=== PATIENT | female | born 1955 | race Caucasian/White ===

== ENCOUNTER → 2023-04-16 12:39 | Outpatient (REF) | payer MEDICARE, OTHER, SELFPAY ==
[2023-04-16 15:31] LABS: Urine Albumin Trace (Neg - Trace); Urine Bilirubin Negative (Negative); Urine Character Slightly Cloudy (Clear); Urine Color Yellow; Urine Glucose Negative (Negative); Urine Ketone Negative (Negative); Urine Leukocyte Trace (Negative); Urine Nitrite Negative (Negative); Urine Occult Blood Negative (Negative); Urine Specific Gravity 1.025 (<1.030); Urine Urobilinogen Negative (Neg - 1+)
[2023-04-16 15:49] LABS: Blood Urea Nitrogen 18 mg/dl (7-17); Calcium 10.3 mg/dl (8.4-10.2); Carbon Dioxide 29 mmol/L (22-30); Chloride 104 mmol/L (98-107); Glucose 109 mg/dl (70-99); Sodium 142 mmol/L (135-145); eGFR > 60.00
[2023-04-16 15:50] LABS: Urine Amorphous Seen; Urine Calcium Oxalate Crystals Present; Urine Red Blood Cell 0-2 /HPF (0-2)
== END ==
LOC: HWRAD 12:39
PROVIDERS: ATTENDING PHYSICIAN Student in an Organized Health Care Education/Training Program; FAMILY PHYSICIAN Registered Nurse
DX: N13.30 Unspecified hydronephrosis (principal); I10 Essential (primary) hypertension
CPT/HCPCS: 36415; 74176; 80048; 81003; 81015

== ENCOUNTER → 2023-05-07 13:18 | Outpatient (REF) | payer MEDICARE, OTHER, SELFPAY ==
[2023-05-07 14:22] LABS: Blood Urea Nitrogen 20 mg/dl (7-17); Calcium 10.4 mg/dl (8.4-10.2); Carbon Dioxide 27 mmol/L (22-30); Chloride 99 mmol/L (98-107); Glucose 109 mg/dl (70-99); Potassium 3.5 mmol/L (3.5-5.1); Sodium 135 mmol/L (135-145); Uric Acid 10.5 mg/dl (2.5-6.2); eGFR > 60.00
[2023-05-09 12:03] LABS: Intact PTH 175.1 pg/ml (13.6-85.8)
== END ==
LOC: REG 13:18
PROVIDERS: ATTENDING PHYSICIAN Surgery; FAMILY PHYSICIAN Registered Nurse
DX: N13.2 Hydronephrosis with renal and ureteral calculous obstruction (principal)
CPT/HCPCS: 36415; 80048; 83970; 84550

== ENCOUNTER 2023-06-05 05:54 | Day surgery (SDC) | payer MEDICARE, OTHER, SELFPAY ==
[2023-06-01 14:10] VITALS: BMI 44.6
[2023-06-05] VITALS (7 sets, daily range): BP systolic 100–161; BP diastolic 44–77; BMI 44.6
[2023-06-05] MEDS: NORMOSOL-R 1000 IV (13:51)
[2023-06-05] MEDS: DETROL LA 4 MG PO (18:35)
[2023-06-05] MEDS: Pyridium 200 MG PO (18:35)
[2023-06-10 12:44] LABS: Stone Analysis Mass 3 mg
== END 2023-06-05 19:33 | disposition home or self-care (01) ==
LOC: SDS 05:54
PROVIDERS: ATTENDING PHYSICIAN Surgery
DX: N13.2 Hydronephrosis with renal and ureteral calculous obstruction (principal); N20.0 Calculus of kidney
CPT/HCPCS: 52356; 74018; 76000; 82365; A4300; C1758; C1769; C1894; C2617

== ENCOUNTER → 2023-06-25 11:38 | Outpatient (REF) | payer MEDICARE, OTHER, SELFPAY | LOC: HWRAD 11:38 | PROVIDERS: ATTENDING PHYSICIAN Registered Nurse; FAMILY PHYSICIAN Student in an Organized Health Care Education/Training Program | DX: Z78.0 Asymptomatic menopausal state (principal) | CPT/HCPCS: 77080 ==

== ENCOUNTER 2023-12-03 16:14 | Emergency (ER) | payer MEDICARE, OTHER, SELFPAY ==
[2023-12-03 16:19] VITALS: BP 138/59
[2023-12-03 16:52] LABS: % Basophils 0.6 % (0-2); % Eosinophils 2.3 % (0-6); % Immature Granulocytes 0.3 % (0-0.5); % Lymphocytes 25.5 % (20.5-51.1); % Monocytes 8.9 % (1.7-9.3); % Neutrophils 62.4 % (42.2-75.2); Absolute Basophils 0.1 10^3/uL (0-0.2); Absolute Eosinophils 0.2 10^3/uL (0-0.7); Absolute Lymphocytes 2.4 10^3/uL (1.2-3.4); Absolute Monocytes 0.8 10^3/uL (0.1-0.6); Absolute Neutrophils 5.8 10^3/uL (1.4-6.5); Hematocrit 38.2 % (37.0-47.0); Hemoglobin 13.3 g/dL (12.0-16.0); Mean Corp Hgb Conc. 34.8 g/dL (33.0-37.0); Mean Corpuscular Hgb 29.7 pg (27.0-31.0); Mean Corpuscular Volume 85.3 fL (81.0-99.0); Mean Platelet Volume 10.1 fL (7.4-10.4); Nucleated Red Blood Cells % 0 %; Platelet Count 216 10^3/uL (130-400); Red Blood Cell Count 4.48 10^6/uL (4.20-5.40); Red Cell Dist. Width 13.6 % (11.5-14.5); White Blood Cell Count 9.3 10^3/uL (4.8-10.8)
[2023-12-03 17:09] LABS: ALT (SGPT) 42 U/L (0-35); AST (SGOT) 41 U/L (14-36); Albumin 4.3 g/dl (3.5-5.0); Alkaline Phosphatase 99 U/L (38-126); Blood Urea Nitrogen 18 mg/dl (7-17); Calcium 9.9 mg/dl (8.4-10.2); Carbon Dioxide 25 mmol/L (22-30); Chloride 101 mmol/L (98-107); Glucose 109 mg/dl (70-99); Potassium 3.6 mmol/L (3.5-5.1); Sodium 141 mmol/L (135-145); Total Bilirubin 0.4 mg/dl (0.2-1.3); Total Protein 7.2 g/dl (6.3-8.2); eGFR > 60.00
[2023-12-03 17:24] LABS: Troponin I < 0.012 ng/ml
[2023-12-03 17:37] VITALS: BP 140/75
[2023-12-03 18:00] VITALS: BP 106/53
--- NOTE | 2023-12-03 18:12 | ED.GENMED ---
History of Present Illness
General
Chief Complaint: Chest Pain
Time Seen by Provider: 12/03/23 17:35
History of Present Illness
History of Present Illness:
68-year-old female with history of chronic dyspnea on exertion presents to the emergency department for evaluation of exertional chest discomfort that began while taking a walk today. The symptoms did not resolve at rest thus prompting her to come
to the hospital. She states that she has had past history of exertional chest discomfort, has been evaluated extensively by cardiology, pulmonology, and her primary physician for various causes of her breathing difficulty without a known diagnosis.
She does wear oxygen at night. She currently has mild chest discomfort. Denies any recent fevers or chills
Past History
Past History
ED Past Medical History: HTN
ED Past Surgical History: Orthopedic (L5-S1 laminectomy)
Social History
Tobacco: Former smoker
Alcohol: None
Drug: None
Personal: Single
Living: alone
Review of Systems
Review of Systems
Allergies reviewed?: Yes
All Other Systems: ROS reviewed and negative except as documented in HPI and ROS
Phy Exam
Physical Exam
Physical Exam:
GEN: Well appearing, NAD, WDWN
Eyes: PERRLA, EOMs intact, no scleral icterus
HENT: NCAT, oral mucosa moist
Lungs: CTAB, no wheezes, rales, rhonchi, normal chest wall excursion
Cardiac: RRR, no M/R/G, no peripheral edema. Radial pulses 2+ bilat
Neuro: AO x 3
MSK: No gross deformity or ecchymosis. No edema. No digital clubbing
Skin: No rashes, petechiae. Normal color, no pallor or jaundice.
Psych: Calm, cooperative, proper hygiene
Scores
Heart Score for Chest Pain Patients
STEMI patient?: No
History: Moderately Suspicious
ECG: Normal
Age: >/= 65 years
Risk Factors: >/= 3 Risk Factors or History of CAD
Troponin: </= Normal Limit
Heart Score for Chest Pain Patients: 5
Heart Score Risk: 20.3% MACE over next 6 weeks
Course
Orders/Labs/Results
Orders:
Orders
12/03/23 16:15
Electrocardiogram (*1) Urgent
Reason for Study: Chest Pain
EKG- Treatment ONCE
12/03/23 16:35
Complete Blood Count/With Diff Urgent
Comprehensive Metabolic Panel Urgent
Troponin I Urgent
12/03/23 18:11
CR Chest - 2 Views Urgent
Comment:
Reason For Exam: chest pain/SOB
12/03/23 18:21
D-Dimer Urgent
12/03/23 18:52
Troponin I Routine
Abnormal Lab Results
12/03/23
16:35
Absolute Monos (auto) 0.8 H 10^3/uL
(0.1-0.6)
BUN 18 H mg/dl
(7-17)
Glucose 109 H mg/dl
(70-99)
AST 41 H U/L
(14-36)
ALT 42 H U/L
(0-35)
12/03/23 16:35
12/03/23 16:35
Vital Signs
Initial and Last Documented VS:
Initial Vital Signs
Temp Pulse Resp BP Pulse Ox
97.7 F 65 18 138/59 96
12/03/23 16:19 12/03/23 16:19 12/03/23 16:19 12/03/23 16:19 12/03/23 16:19
Last Documented Vital Signs
Temp Pulse Resp BP Pulse Ox
97.7 F 61 16 122/72 96
12/03/23 16:19 12/03/23 19:45 12/03/23 19:45 12/03/23 19:00 12/03/23 19:45
MDM/Problems Addressed
MDM/Problems Addressed:
Female presents with exertional chest pain. Initial delta troponin as well as D-dimer negative ruling out ACS or pulmonary embolism. She is chronic dyspnea on exertion of uncertain origin and I suspect this was the likely transporter driver of her chest pain.
I have recommended she use her oxygen concentrator with exertion. Recommend close cardiology follow-up
Comment
Comment:
EKG independently interpreted by me shows normal sinus rhythm at a rate of [address] changes concerning for ischemia, patient motion artifact limits interpretation in the inferior and high lateral leads
*Critical Care Note
Total Time (30-74mins, 75-104mins- exclusive of procedures): Not Applicable
ED Attending Note
-
Portions of this chart may have been created with voice recognition software.� Occasional wrong word or��sound alike� substitutions may have occurred due to the inherent limitations of voice recognition software.
Discharge Plan
Departure
Patient Disposition: Home (Routine Discharge)
Date of Disposition: 12/03/23
Time of Disposition: 19:44
Patient with high blood pressure during this ER visit?: No
Discharge Problem:
Chest pain, exertional
Instructions: Chest Pain DCA Follow Up
Prescriptions:
No Action
lisinopril 20 MG tablet
20 mg PO DAILY
acetaminophen [Tylenol Extra Strength] 500 MG tablet
1,000 mg PO PRN PRN (Reason: fever/mild pain)
miconazole nitrate [Miconazorb AF] 1 APPLIC powder
1 applic topical PRN PRN (Reason: rash)
albuterol sulfate 1 PUFF HFA aerosol inhaler
2 puff inhalation PRN PRN (Reason: shortness of breath or wheeze)
Patient Comments:
Pt states last took 'months ago'
zinc gluconate 30 MG tablet
30 mg PO PRN PRN (Reason: supplement)
budesonide-formoterol [Symbicort] 1 PUFF HFA aerosol inhaler
2 puff inhalation R BID
biotin 1 MG capsule
2 mg PO PRN PRN (Reason: supplement)
quercetin 500 mg Capsule
500 mg PO DAILY
ascorbic acid (vitamin C) [Vitamin C] 500 mg Tablet
500 mg PO PRN PRN (Reason: supplement)
ibuprofen 200 mg tablet
400 - 600 mg PO Q6HPRN PRN (Reason: moderate pain) Qty: 1 0RF
B Complex Tablet Extended Release
1 tab PO DAILY
chlorthalidone 25 mg Tablet
25 mg PO DAILY
vitamin D3-vitamin K2
180 mcg PO DAILY
Cinnamon, Acv, Turmeric
1 dose PO DAILY
Referrals:
Abraham Burgos DO [Family Provider] -
Interventions
Interventions:
*Risk Screen - Suicide Last Done: 12/03/23 17:42
*General Assessment Last Done: 12/03/23 17:42
*Neglect/Abuse Screening Last Done: 12/03/23 17:42
ED- Fall Risk Assessment Last Done: 12/03/23 20:05
*ED COVID-19 Vaccine History Last Done: 12/03/23 17:42
*Nursing Disposition Last Done: 12/03/23 20:05
ED- Cardiac Assessment Last Done: 12/03/23 17:42
Discharge Date and Time
Discharge Date/Time: 12/03/23 20:05
Print Language: [place]
[2023-12-03 18:50] VITALS: BP 134/65
[2023-12-03 19:00] VITALS: BP 122/72
[2023-12-03 19:21] LABS: Troponin I < 0.012 ng/ml
== END 2023-12-03 20:05 | disposition home or self-care (01) ==
LOC: EMR 16:14
PROVIDERS: Physician Assistant; EMERGENCY PHYSICIAN Student in an Organized Health Care Education/Training Program; FAMILY PHYSICIAN Student in an Organized Health Care Education/Training Program
DX: R07.89 Other chest pain (principal); Z87.891 Personal history of nicotine dependence
CPT/HCPCS: 99285; 71046; 80053; 84484; 85025; 85379; 93005

== ENCOUNTER → 2024-04-21 12:39 | Outpatient (REF) | payer MEDICARE, OTHER, SELFPAY | LOC: WDC 12:39 | PROVIDERS: ATTENDING PHYSICIAN Student in an Organized Health Care Education/Training Program | DX: Z12.31 Encounter for screening mammogram for malignant neoplasm of breast (principal) | CPT/HCPCS: 77063; 77067 ==

== ENCOUNTER → 2024-07-08 17:07 | Outpatient (REF) | payer MEDICARE, OTHER, SELFPAY ==
[2024-07-08 17:37] LABS: % Basophils 0.6 % (0-2); % Eosinophils 2.7 % (0-6); % Immature Granulocytes 0.3 % (0-0.5); % Lymphocytes 30.4 % (20.5-51.1); % Monocytes 7.6 % (1.7-9.3); % Neutrophils 58.4 % (42.2-75.2); Absolute Basophils 0.1 10^3/uL (0-0.2); Absolute Eosinophils 0.2 10^3/uL (0-0.7); Absolute Lymphocytes 2.4 10^3/uL (1.2-3.4); Absolute Monocytes 0.6 10^3/uL (0.1-0.6); Absolute Neutrophils 4.5 10^3/uL (1.4-6.5); Hematocrit 44.6 % (37.0-47.0); Hemoglobin 14.7 g/dL (12.0-16.0); Mean Corpuscular Hgb 30.1 pg (27.0-31.0); Mean Corpuscular Volume 91.2 fL (81.0-99.0); Mean Platelet Volume 10.5 fL (7.4-10.4); Nucleated Red Blood Cells % 0 %; Platelet Count 193 10^3/uL (130-400); Red Blood Cell Count 4.89 10^6/uL (4.20-5.40); Red Cell Dist. Width 13.9 % (11.5-14.5); White Blood Cell Count 7.7 10^3/uL (4.8-10.8)
[2024-07-08 17:53] LABS: ALT (SGPT) 79 U/L (0-35); AST (SGOT) 74 U/L (14-36); Albumin 4.8 g/dl (3.5-5.0); Alkaline Phosphatase 97 U/L (38-126); Blood Urea Nitrogen 16 mg/dl (7-17); Calcium 10.4 mg/dl (8.4-10.2); Carbon Dioxide 27 mmol/L (22-30); Chloride 106 mmol/L (98-107); Glucose 117 mg/dl (70-99); Potassium 4.5 mmol/L (3.5-5.1); Sodium 144 mmol/L (135-145); eGFR > 60.00
[2024-07-08 18:23] LABS: TSH 2.33 uIU/ml (0.47-4.68)
== END ==
LOC: REG 17:07
PROVIDERS: ATTENDING PHYSICIAN Internal Medicine Nephrology; FAMILY PHYSICIAN Student in an Organized Health Care Education/Training Program; OTHER PHYSICIAN Internal Medicine Cardiovascular Disease
DX: R73.03 Prediabetes (principal); I10 Essential (primary) hypertension; Z00.00 Encounter for general adult medical examination without abnormal findings; K76.0 Fatty (change of) liver, not elsewhere classified; E78.5 Hyperlipidemia, unspecified; N28.89 Other specified disorders of kidney and ureter; R06.09 Other forms of dyspnea; I50.32 Chronic diastolic (congestive) heart failure
CPT/HCPCS: 36415; 80053; 83036; 84443; 85025

== ENCOUNTER 2024-09-29 18:42 | Emergency (ER) | payer MEDICARE, OTHER, SELFPAY ==
[2024-09-29 18:53] VITALS: BP 157/94
--- NOTE | 2024-09-29 22:00 | ED.GENMED ---
History of Present Illness
General
Chief Complaint: Throat Problem
Source: patient
Exam Limitations: none
Time Seen by Provider: 09/29/24 21:38
Nursing documentation reviewed up to this point in time: agreed with
History of Present Illness
History of Present Illness:
Patient to ED with complaint of left sided sorethroat. Symptoms started yesterday. Today pain is worse and now radiates to her left ear. Denies fever/chills. Brought self to eD for eval.
Past History
Past History
ED Past Medical History: Asthma and HTN
ED Past Surgical History: Orthopedic (L5-S1 laminectomy)
Social History
Tobacco: Former smoker
Alcohol: None
Drug: None
Personal: Single
Living: alone
Review of Systems
Review of Systems
Allergies reviewed?: Yes
All Other Systems: ROS reviewed and negative except as documented in HPI and ROS
Constitutional: Reports fatigue
EENT: Reports other (sorethroat)
Respiratory: Reports no symptoms
Cardiac: Reports no symptoms
ABD/GI: Reports no symptoms
: Reports no symptoms
Musculoskeletal: Reports no symptoms
Skin: Reports no symptoms
Neurological: Reports no symptoms
Psychiatric: Reports no symptoms
Phy Exam
General Physical Exam
General Presentation: mild distress
General age: appears stated age
General Skin: warm and dry
General Habitus: normal
General Mental: alert
ENT Exam
ENT Exam: EOMI, TM's normal, neck supple, normocephalic, swallowing well and other (left enlarged firm anterior cervical node. Uvula midline. No evidence of peritonsilar abscess/cellulitis. No evidence of dental abscess. No dental pain to
palpation. No trismus)
Eye Exam
Eye Exam: PERRL, EOMI, conjunctiva normal and globe normal
Cardiovascular Exam
Cardiovascular Exam: regular rate/rhythm
Pulmonary Exam
Pulmonary Exam: no respiratory distress and chest non tender
Musculoskeletal Exam
Musculoskeletal Exam: full ROM and neuro vasc intact
Skin Exam
Skin Exam: normal color, warm/dry and no rash
Psychiatric Exam
Psychiatric Exam: normal mood/affect
Course
Orders/Labs/Results
Orders:
Orders
09/29/24 18:56
Throat Culture, Comprehensive Urgent
VAIBHAV Source: Tonsil
Specimen Description:
Date Specimen was Collected: 09/29/24
Time Specimen was Collected: 18:52
09/29/24 22:07
COVID-19 Antigen Urgent
Source: Nasal Swab
Influenza A+B Rapid Molecular Urgent
VAIBHAV Source: Nasal Swab
Specimen Description:
Rapid Strep Group A Urgent
VAIBHAV Source: Throat/Pharynx
Specimen Description:
Date Specimen was Collected: 09/29/24
Time Specimen was Collected: 22:04
09/29/24 23:09
Azithromycin [Zithromax] 500 mg PO NOW STA
Hydrocodone 5/APAP 325 [Hull 5/325] 1 tablet PO NOW STA
Vital Signs
Initial and Last Documented VS:
Initial Vital Signs
Temp Pulse Resp BP
98.5 F 75 16 157/94
09/29/24 18:53 09/29/24 18:53 09/29/24 18:53 09/29/24 18:53
Last Documented Vital Signs
Temp Pulse Resp BP Pulse Ox
98.5 F 65 20 157/94 93
09/29/24 18:53 09/29/24 23:04 09/29/24 23:04 09/29/24 18:53 09/29/24 23:04
*Pulse Oximetry
Oxygen Mode of Delivery: Room air
Patient hypoxic: no
*Critical Care Note
Total Time (30-74mins, 75-104mins- exclusive of procedures): Not Applicable
Update Note
Update Note:
Patient to ED wth complaint of sorethroat. Symptoms started last night and continues to worsen. No fever/chills, Covid, Flu, Rapid strep neg. Pharyngeal erythema noted. No tonsilar swelling or exudae. uvula is midline, no evidence of
peritonsilar abscess or cellulitis. No evidence of gingival pain or swelling, No broken teeth, no caries noted. No dental pain to palpation, Swallowing without difficulty. No stridor. VSS she remains afebrile. Requesting ppain medication.
Joby darrionjuanjo in dept. She is discharged home and will follow up [facility] PCP. Given instrctions on s/s to return to ED and she is agreeable to plan.
ED Attending Note
-
Portions of this chart may have been created with voice recognition software.� Occasional wrong word or��sound alike� substitutions may have occurred due to the inherent limitations of voice recognition software.
Discharge Plan
Departure
Patient Disposition: Home (Routine Discharge)
Date of Disposition: 09/29/24
Time of Disposition: 23:11
Patient with high blood pressure during this ER visit?: No
Condition: Good
Covid-19: Not Applicable
Discharge Problem:
Pharyngitis, acute
Instructions: Sore Throat, Adult (DC)
Prescriptions:
New
azithromycin [Zithromax] 250 mg tablet
250 mg PO DAILY 4 Days Qty: 4 0RF
hydrocodone-acetaminophen 5-325 mg tablet
1 tab PO Q4H PRN (Reason: Pain) Qty: 12 0RF
No Action
lisinopril 20 MG tablet
20 mg PO DAILY
acetaminophen [Tylenol Extra Strength] 500 MG tablet
1,000 mg PO PRN PRN (Reason: fever/mild pain)
miconazole nitrate [Miconazorb AF] 1 APPLIC powder
1 applic topical PRN PRN (Reason: rash)
albuterol sulfate 1 PUFF HFA aerosol inhaler
2 puff inhalation PRN PRN (Reason: shortness of breath or wheeze)
Patient Comments:
Pt states last took 'months ago'
zinc gluconate 30 MG tablet
30 mg PO PRN PRN (Reason: supplement)
budesonide-formoterol [Symbicort] 1 PUFF HFA aerosol inhaler
2 puff inhalation R BID
biotin 1 MG capsule
2 mg PO PRN PRN (Reason: supplement)
quercetin 500 mg Capsule
500 mg PO DAILY
ascorbic acid (vitamin C) [Vitamin C] 500 mg Tablet
500 mg PO PRN PRN (Reason: supplement)
ibuprofen 200 mg tablet
400 - 600 mg PO Q6HPRN PRN (Reason: moderate pain) Qty: 1 0RF
B Complex Tablet Extended Release
1 tab PO DAILY
chlorthalidone 25 mg Tablet
25 mg PO DAILY
vitamin D3-vitamin K2
180 mcg PO DAILY
Cinnamon, Acv, Turmeric
1 dose PO DAILY
Referrals:
Abraham Burgos, DO [Family Provider, Family Practice] - Tomorrow
Activity Restrictions/Additional Instructions:
Return to the emergency department immediately for any difficulty breathing or swallowing.
Interventions
Interventions:
*Risk Screen - Suicide Last Done: 09/29/24 18:53
*General Assessment Last Done: 09/29/24 23:04
*Neglect/Abuse Screening Last Done: 09/29/24 18:53
*ED- Fall Risk Assessment Last Done: 09/29/24 18:53
*ED COVID-19 Vaccine History Last Done: 09/29/24 23:04
*Nursing Disposition Last Done: 09/29/24 23:22
ED-EENT Assessment Last Done: 09/29/24 23:04
ED- Pulmonary Assessment Last Done: 09/29/24 23:04
Discharge Date and Time
Discharge Date/Time: 09/29/24 23:22
Print Language: [place]
[2024-09-29 22:29] LABS: COVID-19 Antigen Negative (Negative)
[2024-09-29] MEDS: NORCO 5/325 1 TABLET PO (23:19)
[2024-09-29] MEDS: ZITHROMAX 500 MG PO (23:19)
== END 2024-09-29 23:22 | disposition home or self-care (01) ==
LOC: EMR 18:42
PROVIDERS: Nurse Practitioner; EMERGENCY PHYSICIAN Emergency Medicine; FAMILY PHYSICIAN Student in an Organized Health Care Education/Training Program
DX: J02.9 Acute pharyngitis, unspecified (principal); J45.909 Unspecified asthma, uncomplicated; I10 Essential (primary) hypertension; Z87.891 Personal history of nicotine dependence; Z11.52 Encounter for screening for COVID-19
CPT/HCPCS: 99283; 87070; 87502; 87811; 87880

== ENCOUNTER 2024-11-11 13:22 | Emergency (ER) | payer MEDICARE, OTHER, SELFPAY ==
[2024-11-11 13:28] VITALS: BP 169/81
--- NOTE | 2024-11-11 15:00 | ED.MUSCINJ ---
HPI-Injury
General
Chief Complaint: Musculo-Skeletal Complaint
Source: patient
Exam Limitations: none
Time Seen by Provider: 11/11/24 14:32
Nursing documentation reviewed up to this point in time: agreed with
History of Present Illness-Injury
Initial Injury comments:
69-year-old female with no clinically significant past medical history states that while sitting at home last night developed sudden onset of pain in her left foot along the first metatarsal. She states the pain is sharp, she did not sleep well
last night due to the pain and today she cannot weight-bear without significant pain. She had to use her rollator to ambulate. No recollection of overuse or injury.
Past History
Past History
ED Past Medical History: Asthma, HTN, Psychiatric (Anxiety takes Lexapro) and Other (Sleep apnea with CPAP)
ED Past Surgical History: Orthopedic (L5-S1 laminectomy)
Social History
Tobacco: Former smoker
Alcohol: None
Drug: None
Personal: Single
Living: alone
Employment: Not employed
Review of Systems
Review of Systems
Allergies reviewed?: Yes
All Other Systems: ROS reviewed and negative except as documented in HPI and ROS
Phy Exam
Physical Exam
Physical Exam:
PHYSICAL EXAMINATION:
General: no apparent distress, not acutely ill
Neuro: alert and oriented.
Psychiatric: well kept. interactive and cooperative
Musculoskeletal: Left foot: Tender to palpate along medial aspect of first metacarpal. No redness, distal neurovascular intact. There was some swelling of the fatty tissue just distal to the medial ankle but this area is
nontender. The opposite foot has similar swelling but not as much.
Skin: Warm, pink.
Injury Course
Orders/Labs/Results
Orders:
Orders
11/11/24 13:32
Foot, Left 3 View [CR Foot - Left Min 3 Views] Urgent
Comment:
Reason For Exam: pain
11/11/24 15:38
Cast Shoe Left-Treatment ONCE
MDM/Problems Addressed
Differential Diagnosis Includes:
Sprain/strain/fracture/occult fracture/gout
MDM/Problems Addressed:
69-year-old female with no clinically significant past medical history states that while sitting at home last night developed sudden onset of pain in her left foot along the first metatarsal. She states the pain is sharp, she did not sleep well
last night due to the pain and today she cannot weight-bear without significant pain. She had to use her rollator to ambulate. No recollection of overuse or injury.
X-ray shows no bony abnormality
No infectious symptoms
Cast shoe applied the patient will use her rollator
Short burst of steroids
Follow-up with orthopedic as needed
*Pulse Oximetry
SaO2: 95
Oxygen Mode of Delivery: Room air
Patient hypoxic: not evaluated
*Critical Care Note
Total Time (30-74mins, 75-104mins- exclusive of procedures): Not Applicable
ED Attending Note
-
Portions of this chart may have been created with voice recognition software.� Occasional wrong word or��sound alike� substitutions may have occurred due to the inherent limitations of voice recognition software.
Discharge Plan
Departure
Patient Disposition: Home (Routine Discharge)
Date of Disposition: 11/11/24
Time of Disposition: 15:35
Patient with high blood pressure during this ER visit?: No
Condition: Good
Discharge Problem:
Acute pain of left foot
Instructions: Muscle and Bone Pain (DC), Using Cold for Pain
Prescriptions:
New
prednisone 20 mg tablet
40 mg PO DAILY Qty: 8 0RF
No Action
lisinopril 20 MG tablet
20 mg PO DAILY
acetaminophen [Tylenol Extra Strength] 500 MG tablet
1,000 mg PO PRN PRN (Reason: fever/mild pain)
miconazole nitrate [Miconazorb AF] 1 APPLIC powder
1 applic topical PRN PRN (Reason: rash)
albuterol sulfate 1 PUFF HFA aerosol inhaler
2 puff inhalation PRN PRN (Reason: shortness of breath or wheeze)
Patient Comments:
Pt states last took 'months ago'
zinc gluconate 30 MG tablet
30 mg PO PRN PRN (Reason: supplement)
budesonide-formoterol [Symbicort] 1 PUFF HFA aerosol inhaler
2 puff inhalation R BID
biotin 1 MG capsule
2 mg PO PRN PRN (Reason: supplement)
quercetin 500 mg Capsule
500 mg PO DAILY
ascorbic acid (vitamin C) [Vitamin C] 500 mg Tablet
500 mg PO PRN PRN (Reason: supplement)
ibuprofen 200 mg tablet
400 - 600 mg PO Q6HPRN PRN (Reason: moderate pain) Qty: 1 0RF
B Complex Tablet Extended Release
1 tab PO DAILY
chlorthalidone 25 mg Tablet
25 mg PO DAILY
vitamin D3-vitamin K2
180 mcg PO DAILY
Cinnamon, Acv, Turmeric
1 dose PO DAILY
azithromycin [Zithromax] 250 mg tablet
250 mg PO DAILY 4 Days Qty: 4 0RF
hydrocodone-acetaminophen 5-325 mg tablet
1 tab PO Q4H PRN (Reason: Pain) Qty: 12 0RF
Referrals:
Abraham Burgos DO [Family Provider, Family Practice]
Thang Henao MD [Active, Orthopedics] - As needed
Activity Restrictions/Additional Instructions:
As we discussed, your x-ray is negative.
I sent a prescription to your pharmacy for prednisone to take 40 mg a day for 4 days. If the pain is gone before that you may stop the prednisone.
You may also take Tylenol or ibuprofen as directed on the labels.
Use your walker until you can walk comfortably without it.
Interventions
Interventions:
*Risk Screen - Suicide Last Done: 11/11/24 13:28
*General Assessment Last Done: 11/11/24 13:28
*Neglect/Abuse Screening Last Done: 11/11/24 15:59
*ED- Fall Risk Assessment Last Done: 11/11/24 15:59
*ED COVID-19 Vaccine History Last Done: 11/11/24 15:59
*Nursing Disposition Last Done: 11/11/24 15:59
ED-Musculoskeletal Assessment Last Done: 11/11/24 15:37
Discharge Date and Time
Discharge Date/Time: 11/11/24 16:00
Print Language: [place]
== END 2024-11-11 16:00 | disposition home or self-care (01) ==
LOC: EMR 13:22
PROVIDERS: EMERGENCY PHYSICIAN Emergency Medicine; FAMILY PHYSICIAN Student in an Organized Health Care Education/Training Program
DX: M79.672 Pain in left foot (principal); I10 Essential (primary) hypertension; Z87.891 Personal history of nicotine dependence
CPT/HCPCS: 99283; 73630

== ENCOUNTER → 2024-11-24 11:05 | Outpatient (REF) | payer MEDICARE, OTHER, SELFPAY | LOC: REG 11:05 | PROVIDERS: ATTENDING PHYSICIAN Surgery; FAMILY PHYSICIAN Student in an Organized Health Care Education/Training Program | DX: N20.0 Calculus of kidney (principal) | CPT/HCPCS: 81050; 82340; 82436; 82507; 83735; 83945; 83986; 84105; 84133; 84300; 84392; 84560 ==

== ENCOUNTER → 2025-02-28 16:30 | Outpatient (REF) | payer MEDICARE, OTHER, SELFPAY | LOC: RAD 16:30 | PROVIDERS: ATTENDING PHYSICIAN Physician Assistant; FAMILY PHYSICIAN Student in an Organized Health Care Education/Training Program | DX: L03.90 Cellulitis, unspecified (principal); M79.605 Pain in left leg; M79.89 Other specified soft tissue disorders | CPT/HCPCS: 93971 ==

== ENCOUNTER 2025-03-06 11:02 | Emergency (ER) | payer MEDICARE, OTHER, SELFPAY ==
[2025-03-06 11:14] VITALS: BP 145/70
[2025-03-06 11:54] LABS: Hematocrit 41.7 % (37.0-47.0); Hemoglobin 13.5 g/dL (12.0-16.0); Mean Corp Hgb Conc. 32.4 g/dL (33.0-37.0); Mean Corpuscular Volume 89.5 fL (81.0-99.0); Nucleated Red Blood Cells % 0 %; Platelet Count 240 10^3/uL (130-400); Red Cell Dist. Width 13.3 % (11.5-14.5)
[2025-03-06 12:04] LABS: ALT (SGPT) 45 U/L (0-35); AST (SGOT) 38 U/L (14-36); Albumin 3.9 g/dl (3.5-5.0); Alkaline Phosphatase 123 U/L (38-126); Blood Urea Nitrogen 19 mg/dl (7-17); Calcium 9.8 mg/dl (8.4-10.2); Carbon Dioxide 28 mmol/L (22-30); Chloride 105 mmol/L (98-107); Glucose 108 mg/dl (70-99); Potassium 4.0 mmol/L (3.5-5.1); Sodium 140 mmol/L (135-145); Total Protein 7.1 g/dl (6.3-8.2); eGFR > 60.00
--- NOTE | 2025-03-06 12:36 | ED.GENMED ---
History of Present Illness
<Jesus Santamaria MD, Resident - Last Filed: 03/06/25 16:07>
General
Chief Complaint: Skin Problem
Time Seen by Provider: 03/06/25 12:36
History of Present Illness
History of Present Illness:
69 yo F PMH HTN, chronic dyspnea, prediabetes p/w erythmea/swelling of left lower leg for the past week. Started cephalexin last thursday, and reports that the swelling/erythema is improving, but not sufficiently such that she can ambulate well.
The symptoms initially started last Thursday, and she had a negative US lower extremity last Thursday, started on cephalexin since then. She reports pain, pressure, and tightness that is ongoing, not fully improved. The erythema is receding from
previous line that was drawn.
She denies chest pain, palpitations, headache, abdominal pain. Denies fevers/chills.
She reports that vicotin and ibuprofen helped
She is a former smoker (quit 30 years ago), occasioanl etoh use, no rec drugs
Past History
<Jesus Santamaria MD, Resident - Last Filed: 03/06/25 16:07>
Past History
ED Past Medical History: Asthma, HTN, Psychiatric (Anxiety takes Lexapro) and Other (Sleep apnea with CPAP)
ED Past Surgical History: Orthopedic (L5-S1 laminectomy)
Social History
Tobacco: Former smoker
Alcohol: None
Drug: None
Personal: Single
Living: alone
Employment: Not employed
Review of Systems
<Jesus Santamaria MD, Resident - Last Filed: 03/06/25 16:07>
Review of Systems
Constitutional: Reports no symptoms
EENT: Reports no symptoms
Respiratory: Reports trouble breathing (chronic)
Cardiac: Reports no symptoms
ABD/GI: Reports no symptoms
: Reports no symptoms
Musculoskeletal: Reports other (Left lower extremity swelling/erythema/pain)
Skin: Reports other (Left lower extremity swelling/erythema/pain)
Neurological: Reports no symptoms
Endocrine: Reports no symptoms
Phy Exam
<Jesus Santamaria MD, Resident - Last Filed: 03/06/25 16:07>
Physical Exam
Physical Exam:
VS: BP 145/70; HR 60; T 98.0
General: in some distress
CV: no murmurs on my exam
Pulm: CTAB
GI: no tenderness to palpation, + bowel sounds
MSK/Skin: on my exam, left lower extremity swelling, erythema, L > R. skin is compressible, no visible necrosis, no crepitus, no purulence, signs of venous stasis
pedal pulses appreciable bilaterally on my exam
Neuro: AOx3
Course
<Jesus Santamaria MD, Resident - Last Filed: 03/06/25 16:07>
Orders/Labs/Results
Orders:
Orders
03/06/25 11:29
C-Reactive Protein Urgent
Comment: ADD ON
Complete Blood Count/With Diff Urgent
Comprehensive Metabolic Panel Urgent
Erythrocyte Sed Rate Urgent
Comment: ADDON
03/06/25 13:31
Ibuprofen [Motrin] 400 mg PO NOW STA
Oxycodone/Acetaminophen [Percocet 5/325] 1 tablet PO NOW STA
03/06/25 13:32
US Periph Venous LOWER Ext LT Urgent
Comment:
Reason For Exam: erythema, swelling of leg
03/06/25 13:35
Add On- LAB Urgent
Tests Added?: ESR, CRP
03/06/25 14:09
Cephalexin Monohydrate [Keflex] 500 mg PO NOW STA
03/06/25 14:59
Cephalexin Monohydrate [Keflex] 500 mg PO NOW STA
Abnormal Lab Results
03/06/25
11:29
MCHC 32.4 L g/dL
(33.0-37.0)
Abs Immat Gran (auto) 0.1 H 10^3/uL
(0-0.05)
Absolute Monos (auto) 0.7 H 10^3/uL
(0.1-0.6)
Immature Gran % 1.3 H %
(0-0.5)
Lymphocytes % 15.4 L %
(20.5-51.1)
ESR 46 H mm/hour
(0-20)
BUN 19 H mg/dl
(7-17)
Glucose 108 H mg/dl
(70-99)
AST 38 H U/L
(14-36)
ALT 45 H U/L
(0-35)
C-Reactive Protein 33.50 H mg/L
(0.0-10.00)
03/06/25 11:29
03/06/25 11:29
Vital Signs
Initial and Last Documented VS:
Initial Vital Signs
Temp Pulse Resp BP Pulse Ox
98.0 F 60 16 145/70 98
03/06/25 11:14 03/06/25 11:14 03/06/25 11:14 03/06/25 11:14 03/06/25 11:14
Last Documented Vital Signs
Temp Pulse Resp BP Pulse Ox
98.0 F 60 16 145/70 98
03/06/25 11:14 03/06/25 11:14 03/06/25 11:14 03/06/25 11:14 03/06/25 12:39
<Jas Jeffrey MD - Last Filed: 03/06/25 15:31>
Orders/Labs/Results
Orders:
Orders
03/06/25 11:29
C-Reactive Protein Urgent
Comment: ADD ON
Complete Blood Count/With Diff Urgent
Comprehensive Metabolic Panel Urgent
Erythrocyte Sed Rate Urgent
Comment: ADDON
03/06/25 13:31
Ibuprofen [Motrin] 400 mg PO NOW STA
Oxycodone/Acetaminophen [Percocet 5/325] 1 tablet PO NOW STA
03/06/25 13:32
US Periph Venous LOWER Ext LT Urgent
Comment:
Reason For Exam: erythema, swelling of leg
03/06/25 13:35
Add On- LAB Urgent
Tests Added?: ESR, CRP
03/06/25 14:09
Cephalexin Monohydrate [Keflex] 500 mg PO NOW STA
03/06/25 14:59
Cephalexin Monohydrate [Keflex] 500 mg PO NOW STA
Abnormal Lab Results
03/06/25
11:29
MCHC 32.4 L g/dL
(33.0-37.0)
Abs Immat Gran (auto) 0.1 H 10^3/uL
(0-0.05)
Absolute Monos (auto) 0.7 H 10^3/uL
(0.1-0.6)
Immature Gran % 1.3 H %
(0-0.5)
Lymphocytes % 15.4 L %
(20.5-51.1)
ESR 46 H mm/hour
(0-20)
BUN 19 H mg/dl
(7-17)
Glucose 108 H mg/dl
(70-99)
AST 38 H U/L
(14-36)
ALT 45 H U/L
(0-35)
C-Reactive Protein 33.50 H mg/L
(0.0-10.00)
03/06/25 11:29
03/06/25 11:29
Vital Signs
Initial and Last Documented VS:
Initial Vital Signs
Temp Pulse Resp BP Pulse Ox
98.0 F 60 16 145/70 98
03/06/25 11:14 03/06/25 11:14 03/06/25 11:14 03/06/25 11:14 03/06/25 11:14
Last Documented Vital Signs
Temp Pulse Resp BP Pulse Ox
98.0 F 60 16 145/70 98
03/06/25 11:14 03/06/25 11:14 03/06/25 11:14 03/06/25 11:14 03/06/25 12:39
<Jesus Santamaria MD, Resident - Last Filed: 03/06/25 16:07>
MDM/Problems Addressed
Differential Diagnosis Includes:
cellulitis, DVT, erysipelas, necrotizing fasciitis, compartment syndrome, abscess
MDM/Problems Addressed:
69 yo F PMH prediabetes, HTN, varicose vein p/w erythema/swelling of leg for 1 week duration, started keflex (in a 10 day course)
currently most concerning for cellulitis, which is improving
given that she reports relatively more immobilization this past week, check US left lower extremity if DVT developed
no crepitus, no necrosis, no fluctuance palpable on my exam, skin is compressible reassuring against necrotizing fasciitis, compartment syndrome, abscess
Given that vicotin and ibuprofen helped her, will try a similar regimen
Plan:
- percocet PO
- ibuprofen PO
- repeat US lower left extremity
- add on ESR/CRP
Update:
- US left lower extremity showed no evidence of DVT
- patient reports that percocet worked well for her
- ESR elevated at 46
- CRP elevated 33.5
- keflex 500mg PO given one time so she doesn't miss her dose, will extend duration to 14 days total
Patient is medically stable to be discharge, and patient is okay with plan
keflex 4 additional days will be prescribed for 2 weeks total course
pain control with oxycodone/acetaminophen will be sent to pharmacy as well
Dispo: home
<Jesus Santamaria MD, Resident - Last Filed: 03/06/25 16:07>
*Pulse Oximetry
SaO2: 98
Oxygen Mode of Delivery: Room air
Patient hypoxic: no
*Critical Care Note
Total Time (30-74mins, 75-104mins- exclusive of procedures): Not Applicable
ED Attending Note
<Jesus Santamaria MD, Resident - Last Filed: 03/06/25 16:07>
-
Portions of this chart may have been created with voice recognition software.� Occasional wrong word or��sound alike� substitutions may have occurred due to the inherent limitations of voice recognition software.
<Jas Jeffrey MD - Last Filed: 03/06/25 15:31>
ED Attending Note
Patient seen and examined by attending physician: Yes
ED Attending Note:
Patient with history of chronic lower extremity venous stasis and cellulitis, presents to ED secondary to recurrent left lower leg redness, swelling, along with pain over the past 1 week. Patient was evaluated by her primary care physician 1 week
ago where she was started on Keflex along with an outpatient ultrasound of the lower leg which did not reveal DVT. Since then, patient states that her foot swelling and redness have improved but leg pain is persisting. Patient has been elevating
the affected leg as recommended. Patient has taken ibuprofen without improvement symptoms. Patient had leftover Vicodin, which she has taken with some relief in pain.
Physical Exam
General: no apparent distress, not acutely ill. afebrile
Head: nc/at. eomi
Neck: supple. no meningeal signs.
Neuro: alert and oriented x 3. no focal neurological deficits
Skin: RLE: erythema/swelling extending up from malleolar to midcalf, without open drainage.
Psychiatric: well kept. interactive and cooperative
Extremities: LE b/l edema. no calf tenderness.
There is an area of skin andre provided by primary care physician 1 week ago, which does reveal fortunately receding of the area of erythema.
Discharge Plan
Departure
Patient Disposition: Home (Routine Discharge)
Date of Disposition: 03/06/25
Time of Disposition: 15:25
Patient with high blood pressure during this ER visit?: Yes
Discharge Problem:
Cellulitis
Instructions: Cellulitis (Skin Infection), Adult (DC)
Prescriptions:
New
oxycodone-acetaminophen [Percocet] 5-325 mg Tablet
1 tab PO Q6HPRN PRN (Reason: pain) Qty: 12 0RF
cephalexin 500 mg capsule
500 mg PO QID Qty: 16 0RF
No Action
lisinopril 20 MG tablet
20 mg PO DAILY
acetaminophen [Tylenol Extra Strength] 500 MG tablet
1,000 mg PO PRN PRN (Reason: fever/mild pain)
miconazole nitrate [Miconazorb AF] 1 APPLIC powder
1 applic topical PRN PRN (Reason: rash)
albuterol sulfate 1 PUFF HFA aerosol inhaler
2 puff inhalation PRN PRN (Reason: shortness of breath or wheeze)
Patient Comments:
Pt states last took 'months ago'
zinc gluconate 30 MG tablet
30 mg PO PRN PRN (Reason: supplement)
budesonide-formoterol [Symbicort] 1 PUFF HFA aerosol inhaler
2 puff inhalation R BID
biotin 1 MG capsule
2 mg PO PRN PRN (Reason: supplement)
quercetin 500 mg Capsule
500 mg PO DAILY
ascorbic acid (vitamin C) [Vitamin C] 500 mg Tablet
500 mg PO PRN PRN (Reason: supplement)
ibuprofen 200 mg tablet
400 - 600 mg PO Q6HPRN PRN (Reason: moderate pain) Qty: 1 0RF
B Complex Tablet Extended Release
1 tab PO DAILY
chlorthalidone 25 mg Tablet
25 mg PO DAILY
vitamin D3-vitamin K2
180 mcg PO DAILY
Cinnamon, Acv, Turmeric
1 dose PO DAILY
azithromycin [Zithromax] 250 mg tablet
250 mg PO DAILY 4 Days Qty: 4 0RF
hydrocodone-acetaminophen 5-325 mg tablet
1 tab PO Q4H PRN (Reason: Pain) Qty: 12 0RF
prednisone 20 mg tablet
40 mg PO DAILY Qty: 8 0RF
Referrals:
Abraham Burgos DO [Family Provider, Family Practice]
Activity Restrictions/Additional Instructions:
As discussed, please follow-up with your primary care physician for reevaluation. Please consider return to ED with worsening symptoms. Your prescriptions have been sent electronically to [facility] pharmacy in [place].
Interventions
Interventions:
*General Assessment Last Done: 03/06/25 11:14
*Neglect/Abuse Screening Last Done: 03/06/25 11:14
*ED COVID-19 Vaccine History Last Done: 03/06/25 11:14
*ED Influenza Vaccine History Last Done: 03/06/25 11:14
*Risk Screen - Suicide (C-SSRS) Last Done: 03/06/25 11:14
ED-Skin Assessment Last Done: 03/06/25 14:38
Discharge Date and Time
Print Language: ITALIAN
[2025-03-06] MEDS: MOTRIN 400 MG PO (13:44)
[2025-03-06] MEDS: PERCOCET 5/325 1 TABLET PO (13:45)
[2025-03-06] MEDS: KEFLEX 500 MG PO (14:59)
[2025-03-06 15:38] LABS: C-Reactive Protein 33.50 mg/L (0.0-10.00)
== END 2025-03-06 15:30 | disposition home or self-care (01) ==
LOC: EMR 11:02
PROVIDERS: Emergency Medicine; EMERGENCY PHYSICIAN Emergency Medicine; FAMILY PHYSICIAN Student in an Organized Health Care Education/Training Program
DX: L03.116 Cellulitis of left lower limb (principal); I10 Essential (primary) hypertension; I87.8 Other specified disorders of veins; R73.03 Prediabetes; J45.909 Unspecified asthma, uncomplicated; G47.30 Sleep apnea, unspecified; F41.9 Anxiety disorder, unspecified; Z87.891 Personal history of nicotine dependence
CPT/HCPCS: 99284; 80053; 85025; 85652; 86140; 93971